=== PATIENT | male | born 1965 | race Caucasian/White ===

== ENCOUNTER 2017-12-02 21:02 | Observation (INO) | payer MEDICARE ==
[~2017-12-02] VITALS: Ht 180.3 cm; Wt 173.5 kg
--- NOTE | ~2017-12-02 | HEMODYNAMI ---
PATIENT:ALTAGRACIA HERNANDEZ MEDICAL RECORD: [id number] : 69 LOCATION:[place] [id number] ADMISSION DATE: 12/02/17 Generatedon:12/03/201710:12 Patient name: ALTAGRACIA HERNANDEZ Patient #: [id number] SSN: : 1965 Date of study: 12/03/2017 Page: Of Hemodynamic Procedure Report Patient Data Patient Demographics Procedure consent was obtained First Name: ALTAGRACIA Gender: Male Last Name: MARY : 1965 [facility] Initial: PRINCESS Age: 52 year(s) Patient #: [id number] Race: Unknown Additional ID: [id number] Contact details [address]: [address] [place] [address] rd State: [place] City: [place] Zip code: [address] Past Medical History Allergies Allergen Reaction Date Comments Reported Other allergy 12/03/2017 PCN Admission Admission Data Admission Date: 12/02/2017 Admission Time: 22:59 Room #: [facility] Procedure Procedure Types Cath Procedure Diagnostic Procedure [facility] w/Coron[facility] Procedure Description Procedure Date Procedure Date: 12/03/2017 Procedure Start Time: 9:57 Procedure End Time: 10:10 Procedure Staff Name Function Maximino London MD Performing Physician Barbara Jain RT Monitor Jeremy Humphries RT Scrub Humza Garcia RN Nurse Procedure Data Cath Procedure Fluoroscopy Diagnostic fluoroscopy Total fluoroscopy Time: 2.8 time: 2.8 min min Diagnostic fluoroscopy Total fluoroscopy dose: 399 dose: 399 mGy mGy Contrast Material Contrast Material Type Amount (ml) Isovue 300 52 Entry Location Entry Primary Successful Side Size Upsize Upsize Entry Closure Ascencio ccessful Closure Location (Fr) 1 (Fr) 2 (Fr) Remarks Device Remarks Radial Right 6 Fr Mechanical tr artery Short Compression Estimated blood loss: 10 ml Diagnostic catheters Device Type Used For End Catheter Placement DIAGNOSTIC [place] 110cm 5 Procedure Fr catheter ([id number]) Procedure Complications No complications Procedure Medications Medication Administration Route Dosage Oxygen NC 2 l/min Lidocaine 2% added to field 20 Heparin Flush Bag added to field 2 bags (1000units/500ml NS) 0.9% NaCl I.V. 100 ml/hr Radial Cocktail I.A. 1 syringe (Verapomil 2mg/Nitro 400mcg/Heparin 1500units) Versed I.V. 2 mg Fentanyl I.V. 50 mcg Versed I.V. 1 mg Fentanyl I.V. 25 mcg Hemodynamics Rest Heart Rate: 80 (bpm) Pressure Samples Time Site Value (mmHg) Purpose Heart Use Rate(bpm) 10:03 LV 166/12,29 EDP 80 10:04 AO 143/107(118) Pullback 86 10:04 LV 142/16,25 Pullback 86 Gradients Valve Time Site 1 Site 2 Mean SEP/DFP Peak To Heart Use (mmHg) (sec/min) Peak Rate (mmHg) (bpm) Aortic 10:04 LV AO 0 12 0 86 142/16,25 143/107(118) Calculations Valve P-P Mean Valve Index Valve Source Name Gradient Area Flow (cm2) Aortic 0 0 0 0 Snapshots Pre Cath Intra NCS Post Cath Vital Signs Time Heart Resp SPO2 etCO2 NIBP (mmHg) Rhythm Pain Sedation Rate (ipm) (%) (mmHg) Status Level (bpm) 9:41:51 76 24 96 39.5 167/94(131) NSR 0 (11) 10(A) , No pain 9:46:56 79 18 95 49.2 155/95(126) NSR 0 (11) 10(A) , No pain 9:52:00 78 23 93 32.8 157/91(120) NSR 0 (11) 10(A) , No pain 9:56:58 79 16 95 48.5 Measuring NSR 0 (11) 10(A) , No pain 9:58:22 79 16 94 45.5 Time NSR 0 (11) 10(A) Exceeded , No pain 10:01:10 86 19 94 53.8 134/88(118) NSR 0 (11) 10(A) , No pain 10:06:03 79 17 95 52.3 144/89(113) NSR 0 (11) 10(A) , No pain 10:11:02 80 27 93 48.5 143/92(117) NSR 0 (11) 10(A) , No pain Medications Time Medication Route Dose Verified Delivered Reason Notes Effectiveness by by 9:39:16 Oxygen NC 2 l/min Maximino Buffie used for Lita Garcia RN procedure MD 9:39:23 Lidocaine 2% added 20ml Maximino Maximino for local to vial Lita London MD anesthetic field MD 9:39:29 Heparin Flush added 2 bags Maximino Maximino used for Bag to Lita London MD procedure (1000units/500ml field NORMAN NS) 9:39:39 0.9% NaCl I.V. 100 Maximino Buffie Per ml/hr Lita Garcia RN physician MD 9:55:33 Versed I.V. 2 mg Maximino Buffie for sedation Lita Garcia RN, MD 9:55:40 Fentanyl I.V. 50 mcg Maximino Buffie for sedation Lita Garcia RN, MD 10:00:00 Radial Cocktail I.A. 1 Maximino Maximino for (Verapomil syringe Lita London MD vasodilation 2mg/Nitro MD 400mcg/Heparin 1500units) 10:01:13 Versed I.V. 1 mg Maximino Buffie for sedation Lita Garcia RN, MD 10:01:17 Fentanyl I.V. 25 mcg Maximino Buffie for sedation Lita Garcia RN, MD Procedure Log Time Note 9:11:48 Informed consent obtained and on chart 9:12:04 Diagnostic Cath status Elective 9:12:05 Barbara DE LA GARZA(R) sent for patient. Start room use. 9:12:06 Time tracking: Regular hours (M-F 7:00 - 5:00) 9:12:09 Plan of Care:Hemodynamics will remain stable., Cardiac rhythm will remain stable., Comfort level will be maintained., Respiratory function will remain adequate., Patient/ family verbilizes understanding of procedure., Procedure tolerated without complication., Recovers from procedure without complications.. 9:31:27 Patient received from Med II to CCL 3 Alert and oriented. Tansferred to table in Supine position. 9:31:27 Warm blankets applied, and meryl hugger turned on for patient comfort. 9:31:28 Correct patient and procedure confirmed by team. 9:31:28 ECG and BP/O2 sat monitors applied to patient. 9:31:30 Pre-procedure instructions explained to patient. 9:31:30 Pre-op teaching completed and patient verbalized understanding. 9:31:32 Family in patients room. 9:39:16 Oxygen 2 l/min NC was administered by Humza Garcia RN; used for procedure; 9:39:23 Lidocaine 2% 20ml vial added to field was administered by Maximino London MD; for local anesthetic; 9:39:29 Heparin Flush Bag (1000units/500ml NS) 2 bags added to field was administered by Maximino London MD; used for procedure; 9:39:39 0.9% NaCl 100 ml/hr I.V. was administered by Humza Garcia RN; Per physician; 9:39:42 Vital chart was started 9:41:18 Patient NPO since Midnight. 9:41:35 Patient allergic to Other allergyPCN 9:41:38 Is the patient allergic to Iodine/contrast media? No. 9:41:39 Was the patient premedicated? Yes 9:41:40 Is patient on blood thinner?Yes 9:41:43 ACC The patient was administered the following blood thiners within the last 24 hours: ACCPlavix 9:41:46 Patient diabetic? Yes. 9:41:47 If diabetic: On Metformin? Yes 9:41:50 If on Metformin: Last Dose? 12/02/2017 9:41:52 HCG/Urine : completed and on chart 9:41:57 Snore? Yes 9:41:58 Sleep apnea? Yes 9:42:10 Patient pain scale 0/10 SOB. 9:42:18 IV patent on arrival in left forearm with 0.9% NaCl at KVO. 9:42:26 Lab results completed and on chart. 9:42:32 Right Radial & Right Groin area was prepped with chlora-prep and draped in sterile fashion 9:42:33 Alarms reviewed by R. N. 9:42:33 Sharps counted by scrub and verified by R.N. 9:42:34 Physician paged 9:54:35 Physician arrived 9:54:35 --------ALL STOP TIME OUT------ 9:54:38 Final Timeout: patient, procedure, and site verified with staff and physician. All members of the team are in agreement. 9:54:41 Right Radial & Right Groin site verified by team. 9:54:44 Physical assessment completed. ASA score P 2 - A patient with mild systemic disease as per Maximino London MD. 9:54:48 Sedation plan: IV Moderate Sedation Medication:Versed, Fentanyl 9:55:33 Versed 2 mg I.V. was administered by Humza Garcia RN; for sedation; 9:55:40 Fentanyl 50 mcg I.V. was administered by Humza Garcia RN; for sedation; 9:56:55 Use device set Femoral Dx 9:56:56 ACIST Syringe (84546) opened to sterile field. 9:56:56 Bag Decanter (2002S) opened to sterile field. 9:56:57 Medline Cath Pack ([id number]) opened to sterile field. 9:56:57 DIAGNOSTIC WIRE .035 260cm J wire (519014) opened to sterile field. 9:56:58 ACIST Hand Control (27582) opened to sterile field. 9:56:59 ACIST Manifold (62279) opened to sterile field. 9:56:59 DIAGNOSTIC Multipack 5Fr catheter set ([id number]) opened to sterile field. 9:57:00 Tegaderm 4 x 4 (1626W) opened to sterile field. 9:57:14 SHEATH 6Fr Prelude Radial ([id number]) opened to sterile field. 9:57:18 Procedure started. 9:57:18 Full Disclosure recording started 9:57:23 Local anesthetic to right radial artery with Lidocaine 2% by Maximino London MD.INITIAL ACCESS ONLY 9:57:47 Zero performed for pressure channel P1 9:57:55 Zero performed for pressure channel P1 9:58:01 Zero performed for pressure channel P1 9:58:10 Zero performed for pressure channel P1 9:59:05 A 6 Fr Short sheath was inserted into the Right Radial artery 10:00:00 Radial Cocktail (Verapomil 2mg/Nitro 400mcg/Heparin 1500units) 1 syringe I.A. was administered by Maximino London MD; for vasodilation; 10:01:13 Versed 1 mg I.V. was administered by Humza Garcia RN; for sedation; 10:01:17 Fentanyl 25 mcg I.V. was administered by Humza Garcia RN; for sedation; 10:01:41 A DIAGNOSTIC [place] 110cm 5 Fr catheter ([id number]) was advanced over the wire and used for Procedure. 10:02:54 LV angiography performed. 10:04:23 RCA angiography performed. 10:04:49 EF : 60 % 10:05:06 LCA angiography performed. 10:07:45 TR BAND Large ([id number]) opened to sterile field. 10:07:50 Catheter removed. 10:08:04 Sheath removed intact; hemostasis achieved with Mechanical Compression to the Right Radial artery. 10:08:07 Procedure ended.(Physican Out) 10:08:27 Fluoroscopy time 02.80 minutes. 10:08:36 Fluoroscopy dose: 399 mGy 10:08:36 Flurop Dose total: 399 10:08:40 Contrast amount:Isovue 300 52ml. 10:08:42 Sharps counted by scrub and verified by R.N. 10:08:46 TR band inflated with 13cc of air. 10:08:47 Insertion/operative site no bleeding no hematoma. 10:08:52 Post Procedure Pulses reassessed and unchanged 10:08:56 Post-procedure physical assessment completed. ASA score P 2 - A patient with mild systemic disease as per Maximino London MD. 10:08:59 Post procedure rhythm: unchanged. 10:09:03 Estimated blood loss: 10 ml 10:09:06 Post procedure instruction explained to patient.Patient verbalizes understanding. 10:09:28 Procedure and supply charges have been captured, reviewed, submitted and are correct. 10:09:54 Procedure Complication : No complications 10:09:57 Vital chart was stopped 10:09:58 See physician's report for complete and final results. 10:10:00 Report given to Pre/Post Procedure Room. 10:10:05 Patient transfered to [facility] with Bed. 10:10:07 Procedure ended. 10:10:07 Full Disclosure recording stopped 10:10:10 End room use (Document Last) Device Usage Item Name Manufacture Quantity Catalog Number Hospital Part Current M inimal Lot# / Charge Number Stock Stock Serial# Code ACIST Syringe Acist 1 [id number] [id number] 280460 2 0 (81401) [employer] Bag Decanter Microtek 1 [id number] 34075 [id number] 5 () [employer] Medline Cath Cardinal 1 [id number] 467334 32099 067075 5 [employer] [facility] ([id number]) DIAGNOSTIC WIRE St Kyree 1 029881 585713 227226 256376 3 0 .035 260cm J wire (817446) ACIST Hand Acist 1 59998 436759 673434 470358 5 Control (60547) [employer] ACIST Manifold Acist 1 38752 692826 050783 684075 5 (29299) [employer] DIAGNOSTIC Cardinal 1 [id number] 309970 81780 251292 3 0 Multipack 5Fr Health catheter set ([id number]) Tegaderm 4 x 4 3M 1 1626W 416140 560078 520093 5 (1626W) SHEATH 6Fr Merit 1 [id number] 662124 653645 134851 5 Prelude Radial Medical ([id number]) DIAGNOSTIC Terumo 1 40-1190 130409 929212 193734 5 [place] 110cm 5 Fr catheter ([id number]) TR BAND Large Terumo 1 [id number] 735060 939283 477785 4 0 ([id number]) Signature Audit [place] Stage Time Signature Unsigned Intra-Procedure 12/03/2017 Barbara Jain 10:12:20 AM RT(R) Signatures Monitor : Barbara Jain Signature : RT Date : Time : [address] [address]
[~2017-12-02 21:02] MED LIST: ASPIRIN EC81 M1 PO; BYSTOLIC10 MG PO; COZAAR100 MG PO; CYCLOBENZAPRINE10 MG PO; CYMBALTA60 MG PO; GLUCOTROL XL 5 M5 MG PO; HYDROCODONE-APA1 TAB PO; ISOSORBIDE DINI30 MG PO; LIPITOR20 MG PO; NITROSTAT0.4 MG SL; PLAVIX75 MG PO; PRINIVIL20 MG PO; RANEXA500 MG PO; ZYLOPRIM100 MG PO
[2017-12-02 22:30] LABS: CKMB 0.7 U/L (0.0-3.6); CREATINE KINASE 41 UL (21-232); TROPONIN-I < 0.017 ng/mL (0.000-0.060)
[2017-12-03] MEDS ORDERED: FISH OIL 1,0001 CA1 PO (00:42)
[2017-12-03] MEDS ORDERED: GLUCOPHAGE1000 MG PO (00:42)
[2017-12-03 00:50] VITALS: BP 141/68; Ht 180.3 cm; Wt 173.5 kg
[2017-12-03 01:30] VITALS: BP 157/84
[2017-12-03 04:37] LABS: CREATINE KINASE 50 UL (21-232)
[2017-12-03 04:40] VITALS: BP 153/78
[2017-12-03 04:41] LABS: TROPONIN-I < 0.017 ng/mL (0.000-0.060)
[2017-12-03 07:43] LABS: ANION GAP 12.2 mmol/L (8-16); CALCIUM 9.4 mg/dL (8.5-10.1); CARBON DIOXIDE 31.1 mmol/L (21.0-32.0); CREATININE - SERUM 1.3 mg/dL (0.6-1.3); POTASSIUM - SERUM 4.3 mmol/L (3.5-5.1)
[2017-12-03 07:54] VITALS: BP 173/100
[2017-12-03 08:01] LABS: BASOPHILS 0.3 % (0-2); EOSINOPHILS 2.4 % (0-7); HEMATOCRIT 44.8 % (42.0-54.0); HEMOGLOBIN 15.1 g/dL (13.5-17.5); IMMATURE GRANULOCYTES 0.1 % (0-5); LYMPHOCYTES 35.6 % (15-50); MCH 30.5 pg (26.0-34.0); MCHC 33.7 g/dL (31.0-37.0); MCV 90.5 fL (80.0-100.0); MEAN PLATELET VOLUME 11.5 fL (7.4-10.4); MONOCYTES 9.1 % (2-11); NEUTROPHILS 52.5 % (40-80); PLATELET COUNT 184 10x3/uL (130-400); RBC 4.95 10x6/uL (4.20-6.10); RDW 12.8 % (11.5-14.5); WBC 7.6 10x3/uL (4.8-10.8)
== END 2017-12-03 12:59 | disposition home or self-care (01) ==
LOC: D.ER 21:02 → D.EDHOLD 22:59 → OBSVTIME 22:59 → D.M2 22:59 → D.CLR 12-03 10:26
PROVIDERS: Family Medicine; Internal Medicine Cardiovascular Disease
DX: R07.89 Other chest pain (principal); I25.10 Atherosclerotic heart disease of native coronary artery without angina pectoris; Z95.5 Presence of coronary angioplasty implant and graft; Z72.0 Tobacco use; F32.9 Major depressive disorder, single episode, unspecified; I10 Essential (primary) hypertension; E11.40 Type 2 diabetes mellitus with diabetic neuropathy, unspecified

== ENCOUNTER → 2020-12-24 08:51 | Outpatient (CLI) | payer MEDICARE ==
[2017-12-03 00:50] VITALS: BMI 53.2
[~2020-12-24 08:51] MED LIST changes: +FISH OIL 1,0001 CA1 PO; +GLUCOPHAGE1000 MG PO
== END | disposition home or self-care (01) ==
LOC: D.CT 08:51
PROVIDERS: ATTEND Family Medicine
DX: J84.10 Pulmonary fibrosis, unspecified (principal)